=== PATIENT | female | born 1990 | race Caucasian/White ===

== ENCOUNTER 2017-10-11 17:22 | Inpatient (IN) | payer OTHER ==
[2017-10-11 18:31] LABS: Hematocrit 13 % (35-47); Mean Corpuscular HGB Conc 29 g/dl (31-36); Mean Corpuscular Hemoglobin 16 pg (27-31); Mean Corpuscular Volume 56 fL (80-97); Platelet Count 277 10^3/ul (150-450); Red Blood Count 2.38 10^6/ul (4.00-5.40); Red Cell Distribution Width 24 % (10.5-15); White Blood Count 8.5 10^3/ul (3.5-10.8)
[2017-10-11 18:35] LABS: EGFR Non-African American 111.7 (>60)
[2017-10-11 18:42] LABS: ABS Basophils 0.1 10^3/ul (0-0.2); ABS Eosinophils 0.3 10^3/ul (0-0.6); ABS Lymphocytes 2.9 10^3/ul (1.0-4.8); ABS Monocytes 0.4 10^3/ul (0-0.8); ABS Neutrophils 4.8 10^3/ul (1.5-7.7); ABS Nucleated RBC 0 10^3/ul; Eosinophil % 3.6 % (0-6); Lymphocyte % 33.7 % (25-47); Nucleated Red Blood Cells % 0.1
--- NOTE | 2017-10-11 18:45 | ED ---
GI/ HPI - HPI Summary HPI Summary: [facility] for further evaluation of low hemoglobin. Complains of heavy vaginal bleeding for 1.5 months, with associated weakness, exertional SOB, lightheadedness, dizziness, occasional nausea, intermittent abdominal cramping, intermittent pain with urination and increased frequency and urge. Patient states she has been stacking 3 pads at a time and changing them every couple hours. Blood flow varies from small leak to gushing with large clots. Patient states PCP was seen 2 days ago and patient was diagnosed with Trichomonas and given antibiotics. Patient on OCPs. Medical history is anxiety. Denies abdominal/pelvic surgical history. Patient states she was seen here twice before in 2014 for heavy vaginal bleeding. Pelvic ultrasound 08/15/14 negative. CBC from 08/15/14 hemoglobin of 10.8. CBC from 02/07/15 hemoglobin of 11.3. Patient seen last Sunday by primary care Shereen Salgado BOOKING POLICE OFFICER with S in [place], was diagnosed with Trichomonas and given rx for flagyl. Patient states she did not have bleeding that day. [facility] of vaginal bleeding and to check that she was given the right antibiotic by her PCP, as she has allergy to sulfa. [facility] and told her to go to ED for hgb of 3.8. No prior history of transfusion. Denies blood in stool, hemoptysis. - History of Current Complaint Chief Complaint: EDVaginalBleeding Time Seen by Provider: 10/11/17 17:48 Stated Complaint: HEAVY BLEEDING Hx Obtained From: Patient, Family/Perinatology Physician Hx Last Menstrual Period: 08/18/15 Onset/Duration: Started Weeks Ago Timing: Intermittent Severity: Severe Current Severity: Moderate Vaginal Bleeding Description: Bright Red Pain Intensity: 2 Location of Pain: Suprapubic Pain Characteristics: Cramping Associated Signs and Symptoms: Positive: Pallor, Weakness, Nausea, Dysuria, Lightheadedness, Abdominal Pain, Pale, UTI Symptoms Additional Signs & Symptoms: Positive: Vaginal Bleeding - Allergy/Home Medications Allergies/Adverse Reactions: Allergies Allergy/AdvReac Type Severity Reaction Status Date / Time Sulfa (Sulfonamide Allergy Unknown Verified 10/11/17 17:54 Antibiotics) Reaction Details Home Medications: Home Medications Biotin/Keratin 2 cap PO DAILY 10/11/17 [History Confirmed 10/11/17] Ferrous Sulfate TAB* 325 mg PO DAILY 10/11/17 [History Confirmed 10/11/17] Sprintec 28 Day Tablet 1 tab PO DAILY 10/11/17 [History Confirmed 10/11/17] Wellbutrin TAB* 150 mg PO DAILY 10/11/17 [History Confirmed 10/11/17] PMH/Surg Hx/FS Hx/Imm Hx Endocrine/Hematology History: Denies: Hx Anticoagulant Therapy, Hx Diabetes, Hx Thyroid Disease Cardiovascular History: Denies: Hx Congestive Heart Failure, Hx Deep Vein Thrombosis, Hx Hypertension , Hx Myocardial Infarction, Hx Pacemaker/ICD Respiratory History: Reports: Hx Asthma - as a child Denies: Hx Chronic Obstructive Pulmonary Disease (COPD), Hx Lung Cancer, Hx Pneumonia, Hx Pulmonary Embolism GI History: Denies: Hx Gall Bladder Disease, Hx Gastrointestinal Bleed, Hx Ulcer, Hx Urosepsis History: Denies: Hx Kidney Stones, Hx Renal Disease Neurological History: Denies: Hx Dementia, Hx Migraine, Hx Seizures, Hx Transient Ischemic Attacks (TIA) Psychiatric History: Reports: Hx Anxiety, Hx Depression Denies: Hx Schizophrenia, Hx Bipolar Disorder - Immunization History Date of Tetanus Vaccine: Unk Date of Influenza Vaccine: Fall 2014 Infectious Disease History: No Infectious Disease History: Denies: History Other Infectious Disease, Traveled Outside the [place] in Last 30 Days - Family History Known Family History: Positive: None - Social History Alcohol Use: None Substance Use Type: Reports: None Smoking Status (MU): Never Smoked Tobacco Review of Systems Constitutional: Negative Eyes: Negative ENT: Negative Cardiovascular: Negative Positive: Shortness Of Breath Positive: Abdominal Pain, Nausea Positive: burning Musculoskeletal: Negative Skin: Negative Positive: Weakness Psychological: Normal All Other Systems Reviewed And Are Negative: Yes Physical Exam Triage Information Reviewed: Yes Vital Signs On Initial Exam: Initial Vitals Temp Pulse Resp BP Pulse Ox 98.9 F 99 18 125/63 100 10/11/17 17:25 10/11/17 17:25 10/11/17 17:25 10/11/17 17:25 10/11/17 17:25 Vital Signs Reviewed: Yes Appearance: Positive: Well-Appearing Skin: Positive: Warm, Pale Head/Face: Positive: Normal Head/Face Inspection Eyes: Positive: Normal Neck: Positive: Supple Respiratory/Lung Sounds: Positive: Clear to Auscultation Cardiovascular: Positive: Normal Abdomen Description: Positive: Nontender Musculoskeletal: Positive: Normal Neurological: Positive: Normal Psychiatric: Positive: Normal AVPU Assessment: Alert - [place] Coma Scale Best Eye Response: 4 - Spontaneous Best Motor Response: 6 - Obeys Commands Best Verbal Response: 5 - Oriented Coma Scale Total: 15 Diagnostics - Vital Signs Vital Signs Temp Pulse Resp BP Pulse Ox 10/11/17 17:25 98.9 F 99 18 125/63 100 - Laboratory Result Diagrams: 10/11/17 18:05 10/11/17 18:05 Lab Statement: Any lab studies that have been ordered have been reviewed, and results considered in the medical decision making process. - EKG 1 Cardiac Rate: NL EKG Rhythm: Sinus Rhythm ST Segment: Normal Ectopy: None GIGU Course/Dx - Course Course Of Treatment: Patient [facility] ED for further evaluation of low hemoglobin. Complains of heavy vaginal bleeding for 1.5 months, with associated weakness, exertional SOB, lightheadedness, dizziness, occasional nausea, intermittent abdominal cramping, intermittent pain with urination and increased frequency and urge. Patient states she has been stacking 3 pads at a time and changing them every couple hours. Blood flow varies from small leak to gushing with large clots. Patient states PCP was seen 2 days ago and patient was diagnosed with Trichomonas and given antibiotics. Patient on OCPs. Medical history is anxiety. Denies abdominal/ pelvic surgical history. Patient pale. Cap refill normal. No work of breathing. Abdomen soft nontender. Vital signs within normal limits and stable. Hemoglobin 3.8. Transfusion with 2 units RBCs initiated. Patient states she was seen here twice before in 2014 for heavy vaginal bleeding. History of pelvic ultrasound 08/15/14 negative. CBC from 08/15/14 has hemoglobin of 10.8. CBC from 02/07/15 has hemoglobin of 11.3. Patient seen last Sunday 5 primary care Shereen salgado NP with daily at bedtime in [place], was diagnosed with Trichomonas. Patient states she did not have bleeding that day. Patient went [facility] today for better evaluation of vaginal bleeding and to check that she was given the right antibiotic by her PCP. No prior history of transfusion. Denies blood in stool, hemoptysis. Discussed patient with Dr. Sandhu personal lines underwriter for gynecology who agreed with plan for transfusion. Recommended pelvic ultrasound. Ultrasound positive for large fibroid. Patient will be admitted under Dr. Sandhu gynecology. - Diagnoses Provider Diagnoses: Anemia, Vaginal bleeding - Critical Care Time Critical Care Time: 30-74 min - Critical care time is exclusive of separately billed procedures Discharge - Sign-Out/Discharge Documenting (check all that apply): Patient Departure - Discharge Plan Condition: Stable Disposition: ADMITTED TO [facility] Referrals: No Primary Care Phys,NOPCP [Primary Care Provider] - - Billing Disposition and Condition Condition: STABLE Disposition: Admitted to [facility]
[2017-10-11 19:02] LABS: INR 0.78 (0.77-1.02)
[2017-10-11 20:01] LABS: Hemoglobin 3.8 g/dl (12.0-16.0)
[2017-10-11 20:31] LABS: Urine Appearance Cloudy; Urine Blood 3+ (Negative); Urine Ketones Negative (Negative); Urine Protein 2+(100 mg/dL) (Negative); Urine Red Blood Cell 3+(>10/hpf) (Absent); Urine Specific Gravity 1.003 (1.010-1.030); Urine Urobilinogen Negative (Negative); Urine White Blood Cell 1+(6-10/hpf) (Absent)
[2017-10-11 20:32] LABS: Urine Color Red
--- NOTE | 2017-10-11 21:23 | RAD ---
EXAM: US Pelvis, Transvaginal CLINICAL HISTORY: 27 years old, female; Signs and symptoms; Menstruation abnormalities; Excessive menstruation; Other: Heavy bleeding for 1.5 months; Additional info: Vaginal bleed TECHNIQUE: Real-time transvaginal pelvic ultrasound (complete) with image documentation. Transvaginal imaging was used for better evaluation of the endometrium and adnexa. COMPARISON: PELVIC US PELVIC 08/15/2014 1:42 PM FINDINGS: Uterus/cervix: Anteverted anteflexed.Measures 9.3 x 5.5 x 3.8 cm (101 cc). Endometrial versus submucosal hypoechoic mass measures 2.3 x 2.3 x 2.1 cm and shows internal vascular flow. Associated small volume of endometrial fluid. Early proliferative phase endometrium measuring 0.2 cm. Right ovary: Right ovary measures 2.4 x 1.0 x 0.7 cm (0.9 cc). Normal size and echogenicity with no masses. Normal follicles. Normal arterial and venous waveforms. Left ovary: Left ovary measures 2.6 x 0.8 x 0.8 cm (0.9 cc). Normal size and echogenicity with no masses. Normal follicles. Normal arterial and venous waveforms. Normal blood flow. Free fluid: Small volume free fluid adjacent to the left adnexa. Bladder: Empty bladder which cannot be evaluated with this probe. IMPRESSION: 1. Endometrial polyp versus submucosal fibroid which can be further characterized with hysterosonography. 2. Sonographically normal ovaries.
[2017-10-11] MEDS ORDERED: Ondansetron INJ* 2 MG/ML VIAL IV PRN (21:35)
[2017-10-11] MEDS ORDERED: NS 0.9% 1000 ML* 1,000 ML IV SCH (21:45)
[2017-10-11] MEDS ORDERED: LEUPROLIDE ACETATE 3.75 MG IM ONE (22:14)
--- NOTE | 2017-10-12 00:20 | HP ---
ADMISSION HISTORY AND PHYSICAL: DATE OF ADMISSION: 10/11/17 CHIEF COMPLAINT: Vaginal bleeding. HISTORY OF PRESENT ILLNESS: The patient is a 27-year-old, who presents with greater than 1 month of vaginal bleeding worse over the past 5 days. Patient is currently on Sprintec oral contraceptive therapy and had skipped her placebo week secondary to the bleeding and continued her pill packet and helps to reduce the amount of bleeding. The patient came into the emergency room with a hemoglobin of 3.8 and is currently receiving her first unit of blood. Patient was seen by her primary care in [place] in the last 48 hours for the vaginal bleeding and did have cervical cultures obtained GC and chlamydia which were negative. She had a positive culture for trichomoniasis and has prescription of metronidazole which she is scheduled to take. In addition had a staph culture that was positive of the vaginal wall and then was given Keflex for this. Patient in the past has used Paragard IUD but stopped this secondary to heavy bleeding. She was last seen approximately 2 years ago with heavy bleeding ; however, her hemoglobin at that time never went below 10 and the patient states that her bleeding had been relatively normal up until the last month and a half. PAST MEDICAL HISTORY: Noted for fracture of the right third finger, distal fracture, history of anxiety for which patient is stable on Wellbutrin 150 mg XL. PAST SURGICAL HISTORY: No surgical history. PAST MUSHROOM GROWTH MEDIA MIXER HISTORY: Denies history of STI other than history of human papillomavirus in the remote past. Patient is up-to-date with her Pap Smear through [place]. The family practice in the last 3 days had the Pap Smear done. Denies history of prior fibroid uterus. MEDICATIONS: Include, 1. Metronidazole 500 mg b.i.d. 2. Keflex 500 mg b.i.d. which the patient is not started either of these prescriptions. 3. Wellbutrin XL 150 mg 1 tablet p.o. daily. ALLERGIES: SULFA. SOCIAL HISTORY: She has a partner for greater than 2 years. Works 2 jobs. No current tobacco. REVIEW OF SYSTEMS: Denies fevers or chills. Denies dysuria, painful void. GI : Denies nausea, vomiting or diarrhea. Cardiovascular: Denies heart palpitations or regular heart rate. Lungs: Does note shortness of breath with activity. Denies any wheezing. : Positive vaginal bleeding. Denies any foul discharge. PHYSICAL EXAMINATION CONSTITUTIONAL: This is a pale, pleasant female lying supine. VITAL SIGNS: Heart rate is 100, respiratory rate 15, blood pressure 130/78, temperature 98.9. NECK: No masses. No enlargement appreciated. No thyromegaly. CARDIOVASCULAR: Normal rate and rhythm. No murmurs, rubs or gallops. Breath sounds are equal bilaterally and clear to auscultation. LUNGS: clear to auscultation breath sound equal bilaterally ABDOMEN: Scaphoid. No hepatosplenomegaly appreciated. No rebound, no guarding. EXTREMITIES: Distal extremities of legs no edema, pale in color. DTRs +1. PELVIC: External genitalia without lesions or masses. Labia was normal appearance. Vagina mucosa, no masses appreciated. Cervix: No cervical motion tenderness. Uterus: Does not feel enlarged and it is nontender. Adnexa were nontender without masses and approximately 2 cc of clot removed from the vagina digitally. ASSESSMENT AND PLAN: Patient is a 27-year-old with a submucosal fibroid measuring greater than 2.3 cm appears to be this is the worse of her acute and chronic hemorrhage. I have recommended transfusion and start with 2 units of packed red blood cells, recheck a blood count 4 hours after the second transfusion and if remains under 7 would transfuse another 2 units of blood cells. Patient is amenable to this and recognizes the risks that are associated with transfusion. In addition I have discussed options including Lupron therapy as a treatment for submucosal fibroids and then subsequent hysteroscopic resection. The patient is aware that this is about approximately 3 months process. Discussed uterine artery embolization, however, the patient wants to maintain fertility in the future and so this option is less appealing to the patient at present. TIME SPENT: Length of time spent with patient and family which includes her mother, older sister and her partner, is greater than 20 minutes. [id number]/[facility] #: [id number] [facility]
[2017-10-12 06:12] LABS: Hematocrit 22 % (35-47); Hemoglobin 6.7 g/dl (12.0-16.0); Mean Corpuscular HGB Conc 31 g/dl (31-36); Mean Corpuscular Hemoglobin 21 pg (27-31); Mean Corpuscular Volume 66 fL (80-97); Mean Platelet Volume 8.5 um3 (7.4-10.4); Platelet Count 242 10^3/ul (150-450); Red Cell Distribution Width 32 % (10.5-15); White Blood Count 7.6 10^3/ul (3.5-10.8)
[2017-10-12 06:33] LABS: ABS Basophils 0.1 10^3/ul (0-0.2); ABS Eosinophils 0.6 10^3/ul (0-0.6); ABS Lymphocytes 3.7 10^3/ul (1.0-4.8); ABS Monocytes 0.5 10^3/ul (0-0.8); ABS Neutrophils 2.7 10^3/ul (1.5-7.7); ABS Nucleated RBC 0 10^3/ul; Eosinophil % 7.4 % (0-6); Lymphocyte % 48.7 % (25-47); Nucleated Red Blood Cells % 0.2
[2017-10-12] MEDS ORDERED: Docusate CAP* 100 MG PO SCH (09:00)
[2017-10-12 14:29] LABS: Hematocrit 25 % (35-47); Hemoglobin 8.2 g/dl (12.0-16.0); Mean Corpuscular HGB Conc 32 g/dl (31-36); Mean Corpuscular Hemoglobin 22 pg (27-31); Mean Corpuscular Volume 68 fL (80-97); Mean Platelet Volume 9.1 um3 (7.4-10.4); Platelet Count 227 10^3/ul (150-450); Red Blood Count 3.71 10^6/ul (4.00-5.40); Red Cell Distribution Width 31 % (10.5-15); White Blood Count 7.2 10^3/ul (3.5-10.8)
[2017-10-12] MEDS ORDERED: WELLBUTRIN 150 MG PO SCH (14:45)
[2017-10-12 15:40] LABS: ABS Basophils 0.2 10^3/ul (0-0.2); ABS Eosinophils 0.4 10^3/ul (0-0.6); ABS Lymphocytes 3.1 10^3/ul (1.0-4.8); ABS Monocytes 0.5 10^3/ul (0-0.8); ABS Neutrophils 3.1 10^3/ul (1.5-7.7); ABS Nucleated RBC 0 10^3/ul; Eosinophil % 6.1 % (0-6); Lymphocyte % 42.3 % (25-47); Nucleated Red Blood Cells % 0.1
[2017-10-12 15:58] VITALS: BP 124/58
--- NOTE | 2017-10-13 02:00 | DS ---
DISCHARGE SUMMARY: DATE OF ADMISSION: 10/11/17 DATE OF DISCHARGE: 10/12/17 HOSPITAL COURSE: This patient is a 27-year-old woman who presented to the emergency department with over a month of vaginal bleeding, which has been significantly worse over the past 5 days. She has been using oral contraceptives and was attempting to continue to control her bleeding with continuous pills. Hemoglobin on presentation to the emergency department was 3.8. She was started on blood immediately in the emergency department. She had been seen previously by primary care in the last 48 hours for vaginal bleeding and had some cervical cultures done. She reports that she was positive for Trichomonas and was given twice daily metronidazole for treatment, but she has not started taking it yet. The patient had a history of a Paragard IUD in the past, but this was removed after she was having heavy bleeding. Ultrasound in the emergency department noted a submucosal fibroid measuring over 2.3 cm, which is likely the cause of her acute and chronic bleeding. The patient was admitted overnight for continued blood transfusion. She received a total of 3 units of packed red blood cells. She was also given Lupron to help decrease her bleeding short-term. After 3 units of blood, her hemoglobin was up to 8.2 and she was feeling much better. Her bleeding had also significantly decreased. Considering she was significantly improved clinically, she was discharged to home in good condition on hospital day 2. DISCHARGE INSTRUCTIONS: The patient was instructed to return to the office in 1 to [address] Sandhu for followup. The Lupron should last 4 months, but she will need to have a plan for either continuing treatment or surgery in the near future. The patient was advised to not drive for the next 2 days and longer as she is still very tired or has any trouble with balance. She should return immediately if she has return of heavy bleeding. DISCHARGE LABORATORY INFORMATION: Hemoglobin 8.2, hematocrit 25, platelets 227, 000. DISCHARGE DIAGNOSES: Severe menorrhagia and severe anemia from blood loss with a submucosal fibroid, status post blood transfusion x3 units. FOLLOWUP: OB-BUSINESS RELATIONSHIP MANAGER office within 1 to 2 weeks and Mental Health as soon as possible. The patient was provided with local mental health contact information prior to discharge. DISCHARGE MEDICATIONS: Please see the patient's discharge medication summary. [id number]/[facility] #: [id number] [facility]
== END 2017-10-12 17:35 | disposition home or self-care (01) | DRG 663 ==
LOC: ED 17:22 → SSU 21:35
PROVIDERS: ADMIT Obstetrics & Gynecology; ATTEND Obstetrics & Gynecology
PROC: 30233N1 Transfusion of Nonautologous Red Blood Cells into Peripheral Vein, Percutaneous Approach (ICD-10-PCS; principal; 2017-10-11)
DX: D64.9 Anemia, unspecified (principal); N92.0 Excessive and frequent menstruation with regular cycle; D25.0 Submucous leiomyoma of uterus; F41.9 Anxiety disorder, unspecified; J45.909 Unspecified asthma, uncomplicated; F32.9 Major depressive disorder, single episode, unspecified; R40.2362 Coma scale, best motor response, obeys commands, at arrival to emergency department; R40.2142 Coma scale, eyes open, spontaneous, at arrival to emergency department; R40.2252 Coma scale, best verbal response, oriented, at arrival to emergency department; Z86.19 Personal history of other infectious and parasitic diseases; Z88.2 Allergy status to sulfonamides
CPT/HCPCS: 36415; 76830; 76856; 80053; 81003; 81015; 82270; 84702; 85025; 85060; 85610; 85730; 86850; 86900; 86901; 86922; 87077; 87086; 87186; 93005; 99284; J1950; P9040

== ENCOUNTER → 2017-12-21 09:13 | Day surgery (SDC) | payer OTHER ==
[~2017-12-21 09:13] MED LIST: Acetaminophen TAB* 325 MG ONE; Acetaminophen TAB* 325 MG PO PRN; Buffered Lidocaine 0.9% SYRIN* 5 ML/SYR SYRINGE INTRADERM ONE; Dexamethasone IV* 4 MG/ML 1 ML (4 MG) IV SLOW PU ONE; Dexamethasone IV* 4 MG/ML 1 ML (4 MG) ONE; DiMENhydriNATE IV* 50 MG/ML VIAL IV PUSH PRN; Famotidine IV* 10 MG/ML 2 ML (20 mg) IV ONE; Famotidine IV* 10 MG/ML 2 ML (20 mg) ONE; Ibuprofen TAB* 600 MG ONE; Ibuprofen TAB* 600 MG PO PRN; Lidocaine 2% PF * 5 ML VIAL ONE; Midazolam* 1 MG/ML 5 ML VIAL (5 MG) ONE; Morphine VIAL* 10 MG/ML 1 ML VIAL ONE; Naloxone* 0.4 MG/ML 1 ML VIAL IV PRN; Ondansetron INJ* 2 MG/ML VIAL ONE; PROCHLORPERAZINE INJ 5 MG/ML 2 ML VIAL IV PRN; Propofol* 10 MG/ML 20 ML BTL IV PUSH ONE; Silver Nitrate/Potassium Nitr* 1 EA STICK ONE; VASOPRESSIN 20 UNITS/ML 1 ML VIAL ONE; fentaNYL* 50 MCG/ML 2 ML VIAL (100 MCG VIAL) IV PRN; fentaNYL* 50 MCG/ML 2 ML VIAL (100 MCG VIAL) ONE; oxyCODONE/Acetamin 5/325 MG* TAB PO PRN
[2017-12-21 10:23] LABS: ABS Basophils 0 10^3/ul (0-0.2); ABS Eosinophils 0.3 10^3/ul (0-0.6); ABS Lymphocytes 1.8 10^3/ul (1.0-4.8); ABS Monocytes 0.4 10^3/ul (0-0.8); ABS Neutrophils 2.1 10^3/ul (1.5-7.7); ABS Nucleated RBC 0 10^3/ul; Hematocrit 28 % (35-47); Hemoglobin 8.8 g/dl (12.0-16.0); Lymphocyte % 38.8 % (25-47); Mean Corpuscular HGB Conc 32 g/dl (31-36); Mean Corpuscular Hemoglobin 26 pg (27-31); Mean Corpuscular Volume 82 fL (80-97); Mean Platelet Volume 9.1 um3 (7.4-10.4); Nucleated Red Blood Cells % 0.1; Platelet Count 261 10^3/ul (150-450); Red Cell Distribution Width 18 % (10.5-15); White Blood Count 4.6 10^3/ul (3.5-10.8)
[2017-12-21 14:29] VITALS: BP 130/91
== END | disposition home or self-care (01) ==
LOC: OR 09:13
PROVIDERS: ATTEND Obstetrics & Gynecology
DX: D25.0 Submucous leiomyoma of uterus (principal); N93.8 Other specified abnormal uterine and vaginal bleeding; D50.0 Iron deficiency anemia secondary to blood loss (chronic); F41.8 Other specified anxiety disorders
CPT/HCPCS: 36415; 81025; 85025; 86850; 86900; 86901; 88305; A9270-GY; J1100; J2250; J2270; J2405; J2704; J3010